=== PATIENT | male | born 1945 | race Caucasian/White ===

== ENCOUNTER 2022-02-16 13:18 | Outpatient (CLI) | payer MEDICARE, SELFPAY ==
[2022-02-16 13:50] LABS: Estimated Glomerular Filt Rate 78 ml/min
--- NOTE | 2022-02-16 14:00 | CRLHL7_ITS ---
For Patients: As a result of the Century Cures Act, medical imaging exams and procedure reports are released immediately into your electronic medical record. You may view this report before your referring provider. If you have questions, please contact your health care provider. INDICATION: LOCALIZED SWELLING, MASS AND LUMP TECHNIQUE: CT of the neck with 150 ml Omnipaque 370 iodinated contrast agent. Coronal and sagittal reconstructions are included. COMPARISON: None FINDINGS: There is a 4 x 3.4 x 3.5 centimeter mass in the right level 5/supraclavicular space with central low-attenuation fluid and peripheral rim enhancement. This corresponds to the skin marker placed at the site of clinical concern. No adjacent pathologic lymph nodes. The thyroid gland is unremarkable. The oral cavity, nasopharyngeal, oropharyngeal and hypopharyngeal mucosal spaces are normal. No periapical dental disease. The supraglottic, glottic and infraglottic larynx are normal. The airway including the trachea is normal and is patent. The parotid glands, submandibular and sublingual glands are normal in appearance. The vascular structures opacify normally with contrast material. Scattered mild cervical spondylosis without significant neural foraminal stenosis. No suspicious lytic or blastic osseous lesions. Visualized paranasal sinuses and mastoid air cells are clear. Visualized orbital and intracranial contents are normal. Supraclavicular regions, mediastinum and soft tissues of the imaged chest wall are normal. Visualized portions of the upper lungs are clear. IMPRESSION: 1. There is a 4 x 3.4 x 3.5 centimeter mass in the right level 5/supraclavicular space with central low-attenuation fluid and peripheral rim enhancement. This corresponds to the skin marker placed at the site of clinical concern. Necrotic metastatic lymph node should be considered until proven otherwise. Biopsy is recommended. 2. No adjacent pathologic lymph nodes. Please note that all CT scans at this facility use dose modulation, iterative reconstruction, and/or weight-based dosing when appropriate to reduce radiation dose to as low as reasonably achievable. Dictated by Mayonr Heredia MD @ 02/16/2022 2:56:05 PM (Electronically Signed)
== END 2022-02-16 13:19 | disposition home or self-care (01) ==
LOC: CT 13:20
PROVIDERS: PCP Internal Medicine; Visit Provider Internal Medicine
DX: R22.1 Localized swelling, mass and lump, neck (principal); R59.9 Enlarged lymph nodes, unspecified
CPT/HCPCS: 36415; 70491; 82565; Q9967

== ENCOUNTER 2022-09-03 08:16 | Outpatient (CLI) | payer MEDICARE, SELFPAY ==
[2022-09-03 09:36] LABS: Albumin* 4.2 g/dL (3.3-5.0); Chloride* 103 mmol/L (96-114)
[2022-09-03 09:37] LABS: Potassium* 3.9 mmol/L (3.6-5.1); Sodium* 142 mmol/L (135-149)
[2022-09-03 09:39] LABS: Alanine Aminotransferase* 34 U/L (4-50); Alkaline Phosphatase* 91 U/L (40-150); Aspartate Amino Transferase* 24 U/L (12-35); Bilirubin Total* 0.7 mg/dL (0.1-1.5); Blood Urea Nitrogen* 29 mg/dL (7-30); Calcium* 8.9 mg/dL (8.4-10.6); Carbon Dioxide* 32 mmol/L (20-32); Cholesterol* 125 mg/dL (90-199); Creatinine* 0.9 mg/dL (0.5-1.5); Estimated Glomerular Filt Rate 88 ml/min; Glucose* 127 mg/dL (60-115); Total Protein* 7.4 g/dL (6.0-8.3); Triglycerides* 101 mg/dL (40-149)
[2022-09-03 09:40] LABS: HDL Cholesterol* 42 mg/dL (>=40); LDL Cholesterol Calculated 63 mg/dL (<100)
[2022-09-03 10:05] LABS: PSA Screen* 2.02 ng/mL (0.10-4.00)
== END 2022-09-03 08:17 | disposition home or self-care (01) ==
PROVIDERS: PCP Internal Medicine; Visit Provider Internal Medicine
DX: E78.5 Hyperlipidemia, unspecified (principal); I10 Essential (primary) hypertension; Z12.5 Encounter for screening for malignant neoplasm of prostate
CPT/HCPCS: 80053; 80061; 84153

== ENCOUNTER 2022-12-21 10:45 | Outpatient (CLI) | payer MEDICARE, SELFPAY | END 2022-12-21 10:46 | disposition home or self-care (01) | LOC: OP CLINIC 10:45 | PROVIDERS: PCP Internal Medicine; Visit Provider Internal Medicine | DX: Z12.11 Encounter for screening for malignant neoplasm of colon (principal); K63.5 Polyp of colon; Z86.010 Personal history of colon polyps | CPT/HCPCS: 45380; 45385; 88305; J2250; J3010 ==

== ENCOUNTER 2023-04-12 12:09 | Emergency (ER) | payer MEDICARE, SELFPAY ==
[2023-04-12 12:27] VITALS: BP 144/81; PULSE 86; RESP 20; TEMP 37.2; O2SAT 94; BMI 40.3
--- NOTE | 2023-04-12 12:38 | ED.GENADULT ---
HPI - General Adult General Chief complaint: Fever Stated complaint: Fever, cough, chest pain, headache Time Seen by Provider: 04/12/23 12:38 History of Present Illness HPI narrative: Pt and [place]. Returned on Saturday. Saturday began to have cough, fever up to 101, body aches , and severe headache. Had negative COVID test today per . Taking Tylenol, Mucinex, and cough DM. 78-year-old man presenting to the emergency department with concern of cough and fever measured up to 101 general body aches and marked headache. Symptoms began more intensely 2 days ago though was not feeling well earlier in the week. They did test for COVID at home which was negative. Had been an [employer] cruise last week. No rashes. Not actually short of breath, though congested. No vomiting. No diarrhea. Treating with acetaminophen guaifenesin and dextromethorphan. Trying to push fluids. Related Data Home Medications Medication Instructions Recorded Confirmed atorvastatin 20 mg tablet 20 mg PO QDAY 02/14/22 04/12/23 cholecalciferol (vitamin D3) 125 125 mcg PO QDAY 02/14/22 04/12/23 mcg (5,000 unit) capsule diltiazem HCl 360 mg 360 mg PO QDAY 02/14/22 04/12/23 capsule,extended release 24 hr furosemide 40 mg tablet 40 mg PO QDAY 02/14/22 04/12/23 multivitamin (Daily Multi-Vitamin 1 tab PO QDAY 02/14/22 04/12/23 tablet) omeprazole 40 mg capsule,delayed 40 mg PO QDAY 02/14/22 04/12/23 release rivaroxaban 20 mg tablet 20 mg PO QDAY 02/14/22 04/12/23 tamsulosin 0.4 mg capsule 0.8 mg PO QDAY 02/14/22 04/12/23 Previous Rx's Medication Instructions Recorded ondansetron HCl 4 mg tablet 4 mg PO ONCE #1 tab 02/15/22 triamterene 37.5 1 tab PO QDAY Hypertension #90 tabs 09/03/22 mg-hydrochlorothiazide 25 mg tablet peg 3350-electrolytes 236 240 ml PO ONCE #4,000 mL 12/17/22 gram-22.74 gram-6.74 gram-5.86 gram solution (Golytely) scopolamine base 1 mg over 3 days 1 patch transdermal Q3D PRN motion 12/18/22 transdermal patch sickness #4 ea meclizine 12.5 mg tablet 12.5 mg PO TID PRN dizziness #20 03/07/23 tabs benzonatate 200 mg capsule 200 mg PO TID PRN cough #30 caps 04/12/23 Allergies Allergy/AdvReac Type Severity Reaction Status Date / Time No Known Drug Allergies Allergy Verified 04/12/23 12:17 Review of Systems Status of ROS: Reports: 6 or more systems reviewed and unremarkable except as noted in History and below [facility] Medical History Vertigo ?R42 - Dizziness and giddiness (ICD-10) GERD (gastroesophageal reflux disease) ?K21.9 - Gastro-esophageal reflux disease without esophagitis (ICD-10) Knee pain ?M25.569 - Pain in unspecified knee (ICD-10) Encounter for counseling regarding advance directives (08/14/17) ?Z71.89 - Other specified counseling (ICD-10) Surgical History Status post total knee replacement ?Z96.659 - Presence of unspecified artificial knee joint (ICD-10) History of total knee replacement ?Z96.659 - Presence of unspecified artificial knee joint (ICD-10) History of shoulder surgery ?Z98.890 - Other specified postprocedural states (ICD-10) History of colonoscopy ?Z98.890 - Other specified postprocedural states (ICD-10) History of appendectomy (01/31/10) ?Z90.49 - Acquired absence of other specified parts of digestive tract (ICD-10) Family History Sister Breast cancer Brother CHF (congestive heart failure) ALS (amyotrophic lateral sclerosis) Mother CHF (congestive heart failure) Diabetes Father Lung cancer Social History Narrative: Non-smoker No history of alcohol Smoking Status: Never smoker Do you use any of these nicotine containing products: None Second hand tobacco smoke exposure: No How often do you have a drink containing alcohol: never How often do you have six or more drinks on one occasion: Never AUDIT-C Alcohol total score: 0 Non-prescribed substance use: denies use Little interest or pleasure in doing things: not at all Feeling down, depressed, or hopeless: not at all service: No Exam Narrative: Exam Narrative: Very pleasant. Seems generally uncomfortable. Larger, tall man. Congested nasopharynx without facial swelling erythema or tenderness. Oropharynx is moist. Skin is well perfused. Trace lower extremity edema. Lungs are clear other than some upper airway transmission. Heart is distant in regular rate and rhythm. Abdomen is full soft nontender. Const: Vital Signs, click to edit/add: Vital Signs - 24 hr 04/12/23 12:27 Temperature 98.9 F Pulse Rate [Pulse Oximeter] 86 Respiratory Rate 20 Blood Pressure [Ri ght Upper Arm] 144/81 H Pulse Oximetry 94 Oxygen Delivery Me thod Room Air Documenting provider has reviewed patient's vital signs: yes Course Vital Signs Vital signs: Initial Vital Signs Temperature 98.9 F 04/12/23 12:27 Temperature Source Temporal Artery Scan 04/12/23 12:27 Pulse Rate 86 04/12/23 12:27 Pulse Rhythm Regular 04/12/23 12:27 Pulse Strength 3+ Normal 04/12/23 12:27 Respiratory Rate 20 04/12/23 12:27 Blood Pressure 144/81 H 04/12/23 12:27 Blood Pressure Mean 102 04/12/23 12:27 Blood Pressure Position Sitting 04/12/23 12:27 Pulse Oximetry 94 04/12/23 12:27 Oxygen Delivery Method Room Air 04/12/23 12:27 Vital Signs Temperature 98.9 F 04/12/23 12:27 Pulse Rate 86 04/12/23 12:27 Respiratory Rate 20 04/12/23 12:27 Blood Pressure 144/81 H 04/12/23 12:27 Pulse Oximetry 94 04/12/23 12:27 Oxygen Delivery Method Room Air 04/12/23 12:27 Temperature 98.9 F 04/12/23 12:27 Pulse Rate 86 04/12/23 12:27 Respiratory Rate 20 04/12/23 12:27 Blood Pressure 144/81 H 04/12/23 12:27 Pulse Oximetry 94 04/12/23 12:55 Oxygen Delivery Method Room Air 04/12/23 12:27 Medical Decision Making MDM Narrative Medical decision making narrative: I did discuss IV hydration, treating headache. Mr. Carpio feels that he can manage fluids. This seems to be symptoms consistent with COVID or possibly influenza at this point. I would check for these and then reassess as to need for further workup. Does not appear to be septic. I did discuss potential chest x-ray though does not feel again like he is particularly short of breath nor having clearly pleuritic chest pain. Indeed was positive for influenza type A. Due to duration of symptoms I do not think that Tamiflu would be beneficial any longer though we did discuss potential prescription. He was in agreement to manage with conservative measures. See patient discharge plan Medical Records Medical records reviewed: Yes I reviewed the patient's medical records Lab Data Lab results reviewed: Yes I reviewed the patient's lab results Labs: Lab Results 04/12/23 Range/Units 12:25 SARS-CoV-2 (PCR) Negative SARS-CoV-2 (Negative) Influenza Type A (PCR) POSITIVE PCR FLU A A (Negative) Influenza Type B (PCR) Negative PCR FLU B (Negative) RSV (PCR) Negative PCR RSV (Negative) Discharge Plan Discharge Clinical Impression: Influenza A Patient Disposition: Home w/ Parent or Adult Condition: Stable Additional Instructions: Stay well-hydrated. Rest. Menthol vapors might be helpful. Can take ibuprofen or acetaminophen for aches and pains. Return though for persistent increasing shortness of breath, worsening/persistent chest pain, worsening weakness. Can continue with guaifenesin if you like, to help with cough. This apparently thins secretions somewhat. Dextromethorphan is also available [id number] to help suppress cough; I see you also have this. I am also sending in some benzonatate/Tessalon Perles for you; we think maybe this numbs the back of the throat just a little bit. Pseudoephedrine might be helpful in drying the congestion, therefore helping with any postnasal drip associated cough. Probably, you have had symptoms for too long to benefit from oseltamivir/Tamiflu at this point. Prescriptions: New benzonatate 200 mg capsule 200 mg PO TID PRN (Reason: cough) Qty: 30 0RF No Action atorvastatin 20 mg tablet 20 mg PO QDAY diltiazem HCl 360 mg capsule,extended release 24hr 360 mg PO QDAY furosemide 40 mg tablet 40 mg PO QDAY omeprazole 40 mg capsule,delayed release(DR/EC) 40 mg PO QDAY tamsulosin 0.4 mg capsule 0.8 mg PO QDAY rivaroxaban 20 mg tablet 20 mg PO QDAY Rx Instructions: must administer with evening meal cholecalciferol (vitamin D3) 125 mcg (5,000 unit) capsule 125 mcg PO QDAY multivitamin [Daily Multi-Vitamin] Tablet 1 tab PO QDAY scopolamine base 1 mg over 3 days patch 3 day 1 patch transdermal Q3D PRN (Reason: motion sickness) Qty: 4 0RF triamterene-hydrochlorothiazid 37.5-25 mg tablet 1 tab PO QDAY Qty: 90 3RF ondansetron HCl 4 mg tablet 4 mg PO ONCE Qty: 1 0RF Rx Instructions: Take 1-2 hours before imaging scan peg 3350-electrolytes [Golytely] 236-22.74-6.74 -5.86 gram recon soln 240 ml PO ONCE Qty: 4000 0RF Rx Instructions: 4pm day prior to procedure. Drink 8oz glass every 15 minutes until 1/2 of solution is gone. 6 hours prior to procedure drink 8 oz glass every 15 minutes until remaining solution gone. meclizine 12.5 mg tablet 12.5 mg PO TID PRN (Reason: dizziness) Qty: 20 0RF Follow Up/Referrals: Arvin Vaughn MD [Primary Care Provider] - Stand Alone Forms: [facility] Info Instructions
[2023-04-12 12:55] VITALS: O2SAT 94
[2023-04-12 13:42] LABS: PCR FLU A POSITIVE PCR FLU A (Negative); SARS PCR* Negative SARS-CoV-2 (Negative)
[2023-04-12 13:43] LABS: PCR FLU B Negative PCR FLU B (Negative); PCR RSV Negative PCR RSV (Negative)
== END 2023-04-12 14:45 | disposition home or self-care (01) ==
PROVIDERS: Emergency Provider Family Medicine; PCP Internal Medicine
DX: J10.1 Influenza due to other identified influenza virus with other respiratory manifestations (principal)
CPT/HCPCS: 87631; 94761; 99283; 99284

== ENCOUNTER 2023-05-09 12:04 | Emergency (ER) | payer MEDICARE, SELFPAY ==
[2023-05-09 12:20] VITALS: BP 125/71; PULSE 67; RESP 16; TEMP 36.3; O2SAT 98; BMI 39.1
--- NOTE | 2023-05-09 12:27 | CRLHL7_ITS ---
For Patients: As a result of the Century Cures Act, medical imaging exams and procedure reports are released immediately into your electronic medical record. You may view this report before your referring provider. If you have questions, please contact your health care provider. INDICATION: Leg pain and swelling. TECHNIQUE: Ultrasound venous duplex lower left extremity. Compression venous exam was performed using dewey-scale, color Doppler, and spectral Doppler analysis. COMPARISON: None. FINDINGS: Deep veins: Sonographic imaging demonstrates the left common femoral, deep femoral, superficial femoral, popliteal, posterior tibial and the contralateral right common femoral veins to be fully compressible with normal color Doppler blood flow. Superficial veins: Greater saphenous vein is fully compressible. No popliteal cyst. IMPRESSION: Normal left lower extremity venous ultrasound, no sign of deep venous thrombosis. Dictated by Quirino Giang MD @ 05/09/2023 1:39:50 PM (Electronically Signed)
--- NOTE | 2023-05-09 13:44 | ED.GENADULT ---
HPI - General Adult General Date Seen: 05/09/23 Chief complaint: Extremity Pain/Injury, Lower Stated complaint: L leg pain, possible blood clot Time Seen by Provider: 05/09/23 12:24 Source: patient Mode of arrival: ambulatory Limitations: no limitations History of Present Illness HPI narrative: Patient is a 78-year-old male who has been having pain radiating from the left SI area down the back of his left leg to just below the knee for the past few days. He comes in because of concerns about possible blood clot. He has not had swelling or redness, shortness of breath chest pain fevers etcetera. No trauma. He does note that he sees a chiropractor who in the past has felt that he has sciatica on that side. He is anticoagulated secondary to atrial fibrillation and DVT. He takes Xarelto daily. Related Data Home Medications Medication Instructions Recorded Confirmed atorvastatin 20 mg tablet 20 mg PO QDAY 02/14/22 04/12/23 cholecalciferol (vitamin D3) 125 125 mcg PO QDAY 02/14/22 04/12/23 mcg (5,000 unit) capsule diltiazem HCl 360 mg 360 mg PO QDAY 02/14/22 04/12/23 capsule,extended release 24 hr furosemide 40 mg tablet 40 mg PO QDAY 02/14/22 04/12/23 multivitamin (Daily Multi-Vitamin 1 tab PO QDAY 02/14/22 04/12/23 tablet) omeprazole 40 mg capsule,delayed 40 mg PO QDAY 02/14/22 04/12/23 release rivaroxaban 20 mg tablet 20 mg PO QDAY 02/14/22 04/12/23 tamsulosin 0.4 mg capsule 0.8 mg PO QDAY 02/14/22 04/12/23 Previous Rx's Medication Instructions Recorded ondansetron HCl 4 mg tablet 4 mg PO ONCE #1 tab 02/15/22 triamterene 37.5 1 tab PO QDAY Hypertension #90 tabs 09/03/22 mg-hydrochlorothiazide 25 mg tablet peg 3350-electrolytes 236 240 ml PO ONCE #4,000 mL 12/17/22 gram-22.74 gram-6.74 gram-5.86 gram solution (Golytely) scopolamine base 1 mg over 3 days 1 patch transdermal Q3D PRN motion 12/18/22 transdermal patch sickness #4 ea meclizine 12.5 mg tablet 12.5 mg PO TID PRN dizziness #20 03/07/23 tabs benzonatate 200 mg capsule 200 mg PO TID PRN cough #30 caps 04/12/23 Allergies Allergy/AdvReac Type Severity Reaction Status Date / Time No Known Drug Allergies Allergy Verified 04/12/23 12:17 Review of Systems Status of ROS: Reports: 6 or more systems reviewed and unremarkable except as noted in History and below PFSH PFS Medical History Vertigo ?R42 - Dizziness and giddiness (ICD-10) GERD (gastroesophageal reflux disease) ?K21.9 - Gastro-esophageal reflux disease without esophagitis (ICD-10) Knee pain ?M25.569 - Pain in unspecified knee (ICD-10) Encounter for counseling regarding advance directives (08/14/17) ?Z71.89 - Other specified counseling (ICD-10) Surgical History Status post total knee replacement ?Z96.659 - Presence of unspecified artificial knee joint (ICD-10) History of total knee replacement ?Z96.659 - Presence of unspecified artificial knee joint (ICD-10) History of shoulder surgery ?Z98.890 - Other specified postprocedural states (ICD-10) History of colonoscopy ?Z98.890 - Other specified postprocedural states (ICD-10) History of appendectomy (01/31/10) ?Z90.49 - Acquired absence of other specified parts of digestive tract (ICD-10) Family History Sister Breast cancer Brother CHF (congestive heart failure) ALS (amyotrophic lateral sclerosis) Mother CHF (congestive heart failure) Diabetes Father Lung cancer Social History Narrative: Non-smoker No history of alcohol Smoking Status: Never smoker Do you use any of these nicotine containing products: None Second hand tobacco smoke exposure: No How often do you have a drink containing alcohol: never How often do you have six or more drinks on one occasion: Never AUDIT-C Alcohol total score: 0 Non-prescribed substance use: denies use Little interest or pleasure in doing things: not at all Feeling down, depressed, or hopeless: not at all service: No Exam Narrative: Exam Narrative: Vital signs reviewed In general, alert, well-appearing male. Ambulatory without difficulty, breathing easily. Back: Nontender to palpation. Extremities: No lower extremity edema, erythema, tenderness. Distal CMS is intact. Neurologic: Strength is 5 of 5 in bilateral lower extremities, sensation intact to light touch. Skin: Warm and dry without abnormalities. Const: Vital Signs, click to edit/add: Vital Signs - 24 hr 05/09/23 12:20 Temperature 97.3 F L Pulse Rate [Pulse Oximeter] 67 Respiratory Rate 16 Blood Pressure [Ri ght Upper Arm] 125/71 Pulse Oximetry 98 Documenting provider has reviewed patient's vital signs: yes Course Course ED Course: An ultrasound of the left leg was done and was negative for DVT per Radiology read. I think symptoms are certainly more suggestive of sciatica, we talked about management of this, will try mono few days prednisone, continue with Tylenol, ice as needed. He says he generally finds child care centre manager helpful so he can certainly continue with that if he would like. Otherwise primary care follow-up if not improving or if worsening. Return for new symptoms such as fever, swelling, redness. Vital Signs Vital signs: Initial Vital Signs Temperature 97.3 F L 05/09/23 12:20 Temperature Source Temporal Artery Scan 05/09/23 12:20 Pulse Rate 67 05/09/23 12:20 Respiratory Rate 16 05/09/23 12:20 Blood Pressure 125/71 05/09/23 12:20 Blood Pressure Mean 89 05/09/23 12:20 Pulse Oximetry 98 05/09/23 12:20 Vital Signs Temperature 97.3 F L 05/09/23 12:20 Pulse Rate 67 05/09/23 12:20 Respiratory Rate 16 05/09/23 12:20 Blood Pressure 125/71 05/09/23 12:20 Pulse Oximetry 98 05/09/23 12:20 Temperature 97.3 F L 05/09/23 12:20 Pulse Rate 67 05/09/23 12:20 Respiratory Rate 16 05/09/23 12:20 Blood Pressure 125/71 05/09/23 12:20 Pulse Oximetry 98 05/09/23 12:20 Discharge Plan Discharge Clinical Impression: Sciatica of left side Patient Disposition: Home, Self-Care Condition: Stable Instructions: Sciatica (ED) Additional Instructions: Prednisone as prescribed. Tylenol 1000 mg 3 times daily. Okay to see her chiropractor if you find that helpful. Activities as symptoms allow. Primary care follow-up if not improving over the next 1-2 weeks. Return any time for acute worsening or new symptoms such as weakness, fever, or swelling. Prescriptions: No Action atorvastatin 20 mg tablet 20 mg PO QDAY diltiazem HCl 360 mg capsule,extended release 24hr 360 mg PO QDAY furosemide 40 mg tablet 40 mg PO QDAY omeprazole 40 mg capsule,delayed release(DR/EC) 40 mg PO QDAY tamsulosin 0.4 mg capsule 0.8 mg PO QDAY rivaroxaban 20 mg tablet 20 mg PO QDAY Rx Instructions: must administer with evening meal cholecalciferol (vitamin D3) 125 mcg (5,000 unit) capsule 125 mcg PO QDAY multivitamin [Daily Multi-Vitamin] Tablet 1 tab PO QDAY scopolamine base 1 mg over 3 days patch 3 day 1 patch transdermal Q3D PRN (Reason: motion sickness) Qty: 4 0RF triamterene-hydrochlorothiazid 37.5-25 mg tablet 1 tab PO QDAY Qty: 90 3RF benzonatate 200 mg capsule 200 mg PO TID PRN (Reason: cough) Qty: 30 0RF ondansetron HCl 4 mg tablet 4 mg PO ONCE Qty: 1 0RF Rx Instructions: Take 1-2 hours before imaging scan peg 3350-electrolytes [Golytely] 236-22.74-6.74 -5.86 gram recon soln 240 ml PO ONCE Qty: 4000 0RF Rx Instructions: 4pm day prior to procedure. Drink 8oz glass every 15 minutes until 1/2 of solution is gone. 6 hours prior to procedure drink 8 oz glass every 15 minutes until remaining solution gone. meclizine 12.5 mg tablet 12.5 mg PO TID PRN (Reason: dizziness) Qty: 20 0RF Follow Up/Referrals: Arvin Vaughn MD [Primary Care Provider] - Stand Alone Forms: [employer] Info Instructions
== END 2023-05-09 13:18 | disposition home or self-care (01) ==
LOC: ED 13:09
PROVIDERS: Emergency Provider Emergency Medicine; PCP Internal Medicine
DX: M54.32 Sciatica, left side (principal)
CPT/HCPCS: 93971; 99284

== ENCOUNTER 2023-10-15 09:10 | Outpatient (CLI) | payer MEDICARE, SELFPAY ==
--- OUTSIDE RECORDS SUMMARY | 2023-11-04 14:12 | XMS_ITS | Clinical Summary ---
Author Name Unknown Organization [facility] Address [address] [place] [id number] Care Team Providers Care Gyro Mechanic Name Role Phone Josh Thomas Primary Care Provider [phone] Allergies No known active allergies Medications Medication Sig Dispensed Refills Start Date End Date Status atorvastatin (LIPITOR) 20 MG tablet daily 08/13/2019 Active diltiazem ER (DILT-XR) 180 MG 24 hr capsule Take by mouth 2 times daily 09/08/2019 Active furosemide (LASIX) 40 MG tablet Take 40 mg by mouth daily 04/07/2020 Active metoprolol succinate ER (TOPROL-XL) 25 MG 24 hr tablet Take 25 mg by mouth daily 09/08/2019 Active omeprazole (PRILOSEC) [address] capsule Take 40 mg by mouth daily 02/26/2019 Active tamsulosin (FLOMAX) 0.4 MG capsule Take 2 capsules by mouth daily 09/08/2019 Active warfarin ANTICOAGULANT (COUMADIN) 5 MG tablet 8 mg total per day 12/04/2019 Active warfarin ANTICOAGULANT (COUMADIN) 1 MG tablet 11/09/2019 Ac tive triamterene-HCTZ (MAXZIDE-25) 37.5-25 MG tablet Take by mouth daily 01/29/2019 Active rivaroxaban ANTICOAGULANT (XARELTO) 20 MG TABS tablet Take 20 mg by mouth daily (with dinner) Active multivitamin w/minerals (MULTI-VITAMIN) tablet Take 1 tablet by mouth daily Active amoxicillin-clavulanat e (AUGMENTIN) 875-125 MG tabletIndications:Ulce r of left foot with fat layer exposed (H),Cellulitis of foot Take 1 tablet by mouth 2 times daily 20 tablet 02/21/2021 Active Active Problems Problem Noted Date Diagnosed Date Morbid obesity 03/21/2020 Social History Tobacco Use Types Packs/Day Years Used Date Smoking Tobacco: Never Smokeless Tobacco: Never Tobacco Cessation:Counseling Given: Yes Adolescent Education Answer Date Record ed Getting School Help Needed Not on file 03/31 Sex and Gender Information Value Date Recorded Sex Assigned at Not on file Gender Identity Not on file Sexual Orientation Not on file Last Filed Vital Signs Vital Sign Reading Time Taken Comments Blood Pressure 120/72 03/16/2021 8:08 AM CDT Pulse 91 04/06/2020 10:15 AM CDT Temperature - - Respiratory Rate - - Oxygen Saturation - - Inhaled Oxygen Concentration - - Weight 161 kg (355 lb) 03/16/2021 8:08 AM CDT pu lled per pt Height 195.6 cm (6' 5) 03/16/2021 8:08 AM CDT Body Mass Index 42.1 03/16/2021 8:08 AM CDT Plan of Treatment Health Maintenance Due Date Last Done Comments ADVANCE CARE PLANNING 1945 ANNUAL REVIEW OF HM ORDERS 1945 GLUCOSE 1945 LIPID 1945 HEPATITIS C SCREENING 1963 RSV VACCINE ( & 60+) (1 - 1-dose 60+ series) 2005 FALL RISK ASSESSMENT 2010 MEDICARE ANNUAL WELLNESS VISIT 2010 ZOSTER IMMUNIZATION (2 of 3) 06/01/2014 04/06/2014 DTAP/TDAP/TD IMMUNIZATION (3 - Td or Tdap) 02/19/2021 02/19/2011, 07/08/2003, 07/08/2003 COVID-19 Vaccine (3 - 2022- season) 2023 09/20/2020, 08/30/2020 INFLUENZA VACCINE (#1) 2023 , 05/07/2019, 04/07/2019, Additional history exists PHQ-2 (once per calendar year) 2023 Pneumococcal Vaccine: 65+ Years Completed 06/21/2016, 04/06/2015, 04/06/2014, Additional history exists HPV IMMUNIZATION Aged Out No longer e ligible based on patient's age to complete this topic IPV IMMUNIZATION Aged Out No longer e ligible based on patient's age to complete this topic MENINGITIS IMMUNIZATION Aged Out No l onger eligible based on patient's age to complete this topic RSV MONOCLONAL ANTIBODY Aged Out No l onger eligible based on patient's age to complete this topic Care Teams Gyro Mechanic Relationship Specialty Start Date End Date Josh Thomas [address] [id number] PCP - General Family Practice 03/21/20
--- OUTSIDE RECORDS SUMMARY | 2023-11-04 14:12 | XMS_ITS | Referral Summary ---
Author Name Unknown Organization [facility] Address [address] [place] [id number] Care Team Providers Care Crime Scene Investigator Name Role Phone Josh Thomas Primary Care Provider + [phone] Allergies No known active allergies Medications Medication [...] 03/16/2021 8:08 AM CDT Plan of Treatment Not on file Care Teams Crime Scene Investigator Relationship Specialty Start Date End Date Josh Thomas [address] [address] PCP - General Family Practice 03/21/20
--- OUTSIDE RECORDS SUMMARY | 2023-11-04 14:12 | XMS_ITS | Clinical Summary ---
Author Name Unknown Organization [facility] Address [place], [place] [address] Care Team Providers Care Lead Software Developer Name Role Phone Josh Thomas MD Primary Care Provider [phone] Allergies No known active allergies Medications Medication Sig Dispensed Refills Start Date End Date Status atorvastatin (LIPITOR) 20 mg tablet 08/13/2019 Active tamsulosin (FLOMAX) 0.4 mg capsule Take 0.8 mg by mouth once daily in the evening. 04/14/2018 Active triamterene-hydrochlo rothiazide, 37.5-25 mg, (MAXZIDE-25) 37.5-25 mg tablet Take by mouth once daily. 01/29/2019 Active omeprazole (PRILOSEC) 40 mg Delayed-Release capsule Take 40 mg by mouth once daily. 02/26/2019 Active diltiazem CD (CARDIZEM CD) 180 mg extended release 24 hr capsule Take 2 capsules by mouth once daily. 0 12/04/2019 Active furosemide (LASIX) 40 mg tablet TAKE ONE TABLET BY MOUTH EVERY DAY 04/07/2020 Active rivaroxaban (XARELTO) 20 mg tablet TAKE ONE TABLET BY MOUTH EVERY DAY WITH THE LARGEST MEAL OF THE DAY TO TREAT AND/OR PREVENT BLOOD CLOTS 11/22/2020 Active Active Problems Problem Noted Date Diagnosed Date Mixed hyperlipidemia 03/07/2021 Severe obesity (BMI >= 40) 02/04/2020 A-fib 12/04/2019 Presbyopia 01/28/2007 HYPEROPIA 01/28/2007 KNEE SPRAIN 01/09/2005 EYE EXAMINAITION 08/15/1999 DISORDER, REFRACTION NOS 08/15/1999 Resolved Problems Problem Noted Date Diagnosed Date Resolved Date Scleritis, unspecified 07/09/200601/28 Family History Medical History Relation Name Comments Hypertension Brother Genetic Other diabetes-mother Relation Name Status Comments Brother Other Social History Tobacco Use Types Packs/Day Years Used Date Smoking Tobacco: Never Smokeless Tobacco: Never Tobacco Cessation:Counseling Given: Yes Alcohol Use Standard Drinks/Week Comments Never 0 (1 standard drink = 0.6 oz pur e alcohol) Social Connections Answer Date Recorded Frequency of Communication with Friends and Fami ly Not on file 07/08/2021 Financial Resource Strain Answer Date R ecorded Difficulty of Paying Living Expenses Not on file 07/08/2021 Difficulty of Paying Living Expenses Not on file 07/08/2021 Sex and Gender Information Value Date Recorded Sex Assigned at Not on file Gender Identity Not on file Sexual Orientation Not on file Obstetrics History Last Filed Vital Signs Vital Sign Reading Time Taken Comments Blood Pressure 132/89 03/07/2021 11:05 AM CDT Pulse 77 03/07/2021 11:05 AM CDT Temperature - - Respiratory Rate - - Oxygen Saturation 97% 03/07/2021 11: 05 AM CDT Inhaled Oxygen Concentration - - Weight 164.1 kg (361 lb 12.8 oz) 2020 11:05 AM CDT Height 196.9 cm (6' 5.5) 12/04/2019 8:23 AM CDT Body Mass Index 42.35 12/04/2019 8:23 AM CDT Plan of Treatment Health Maintenance Due Date Last Done Comments Tdap 01/20/1956 Depression screening for age 12+ 1957 Hepatitis C screening for age 18-79 1963 Tetanus booster 1965 Zoster (shingles) series for age 50+ (1 of 2) 1995 Medicare Wellness for age 65+ 2010 Pneumococcal series for age 65+ (1 of 1 - PCV) 2010 BMI (ht and wt on same day) for age 18+ 12/03/2020 12/04/2019 COVID-19 vaccine series (2022- season) 2023 08/07/2022, 09/20/2020, 08/30/2020 Influenza for age 65+ 03/08/2024 Care Teams Lead Software Developer Relationship Specialty Start Date End Date Josh Thomas MD [address] [place] [id number] PCP - General Family Practice 01/13/19
== END 2023-10-15 09:11 | disposition home or self-care (01) ==
LOC: NFLDREF 11-04 14:10
PROVIDERS: PCP Internal Medicine; Referring Provider Internal Medicine; Visit Provider Internal Medicine
DX: E78.5 Hyperlipidemia, unspecified (principal); I10 Essential (primary) hypertension; Z12.5 Encounter for screening for malignant neoplasm of prostate
CPT/HCPCS: 80053; 80061; G0103